=== PATIENT | female | born 1990 | race American Indian/Alaskan Native ===

== ENCOUNTER 2017-07-09 19:48 | Emergency (ER) | payer OTHER ==
[2017-07-09 20:14] VITALS: BP 120/86
--- NOTE | 2017-07-09 23:00 | XRay Report ---
FINAL REPORT PROCEDURE: XR CHEST ROUTINE 2V TECHNIQUE: PA and lateral chest radiographs were obtained. CPT 22015 HISTORY: cough COMPARISON: No prior studies are available for comparison. FINDINGS: Heart: Normal. Mediastinum/Vessels: Normal. Lungs/Pleural space: Normal. Bony thorax: No acute osseous abnormality. Other: IMPRESSION: Negative examination.
[2017-07-09] MEDS ORDERED: MOTRIN ONE (23:04)
[2017-07-09] MEDS ORDERED: TESSALON PERLES PO ONE ×2 (23:05→23:08)
[2017-07-09] MEDS ORDERED: MOTRIN PO ONE (23:07)
[2017-07-09 23:38] LABS: Basophils % (Auto) 0.7 % (0.0-1.8); Eosinophils % (Auto) 5.1 % (0.0-4.3); Hematocrit 37.4 % (30.3-42.9); Hemoglobin 12.3 gm/dl (10.1-14.3); Mean Corpuscular HGB Conc 33 % (30-34); Mean Corpuscular Hemoglobin 32 pg (28-32); Mean Corpuscular Volume 96 fl (79-97); Platelet Count 207 K/mm3 (140-440); Red Cell Distribution Width 12.8 % (13.2-15.2); White Blood Count 5.3 K/mm3 (4.5-11.0)
--- NOTE | 2017-07-09 23:44 | Emergency Department Report ---
- General Chief Complaint: Upper Respiratory Infection Stated Complaint: COUGH; CP; URI SX Time Seen by Provider: 07/09/17 23:04 Source: patient Mode of arrival: Ambulatory Limitations: No Limitations - History of Present Illness Initial Comments: This is a 27-year-old female nontoxic, well nourished in appearance, no acute signs of distress presents to the ED with c/o of nonproductive cough x1 weeks and chest pain. Patient stated she was seen last week and was diagnosed with URI and received azithromycin. Patient stated symptoms such as rhinorrhea, productive cough has subsided the patient is complaining of nonproductive cough now. SHe stated THAT this has resolved only complaint now she has is nonproductive cough and chest pain during coughing episode. The patient denies any shortness of breath, wheezing, Pain, calf tenderness, hemoptysis, fever, chills, nausea, vomiting, headache or stiff neck. Patient states she had recent travel of 6 hours on a car but stated she stopped every 2-3 hours. Patient denies travels outside of country. Patient denies any drug allergies or past medical history. Patient denies radiation of chest pain. Chest pain location is mid sternum. MD Complaint: cough -: week(s) (1) Severity: mild Severity scale (0 -10): 8 Quality: aching Consistency: constant, intermittent (chest pain during cough) Improves With: nothing Worsens With: nothing Associated Symptoms: cough. denies: fever, chills, myalgias, diaphoresis, headache, rhinorrhea, nasal congestion, sore throat, stiff neck, chest pain, shortness of breath, abdominal pain, nausea, vomiting, diarrhea, dysuria, rash, confusion, right sweats, weight loss, epistaxis, hoarseness, ear pain - Related Data Previous Rx's Medication Instructions Recorded Last Taken Type Ibuprofen [Motrin] 600 mg PO Q8H PRN #30 tablet 07/09/17 Unknown Rx predniSONE [Deltasone] 40 mg PO QDAY #5 tab 07/09/17 Unknown Rx Benzonatate [Tessalon Perle] 100 mg PO Q8H #30 capsule 07/10/17 Unknown Rx Allergies Allergy/AdvReac Type Severity Reaction Status Date / Time No Known Allergies Allergy Unverified 07/09/17 20:14 ED Review of Systems ROS: Stated complaint: COUGH; CP; URI SX Other details as noted in HPI Constitutional: denies: chills, fever Eyes: denies: eye pain, eye discharge, vision change ENT: denies: ear pain, throat pain Respiratory: cough. denies: shortness of breath, wheezing Cardiovascular: chest pain. denies: palpitations Endocrine: no symptoms reported Gastrointestinal: denies: abdominal pain, nausea, diarrhea Genitourinary: denies: urgency, dysuria, discharge Musculoskeletal: denies: back pain, joint swelling, arthralgia Skin: denies: rash, lesions Neurological: denies: headache, weakness, paresthesias Psychiatric: denies: anxiety, depression Hematological/Lymphatic: denies: easy bleeding, easy bruising ED Past Medical Hx - Social History Smoking Status: Former Smoker Substance Use Type: Alcohol - Medications Home Medications: Home Medications Medication Instructions Recorded Confirmed Last Taken Type Ibuprofen [Motrin] 600 mg PO Q8H PRN #30 tablet 07/09/17 Unknown Rx predniSONE [Deltasone] 40 mg PO QDAY #5 tab 07/09/17 Unknown Rx Benzonatate [Tessalon Perle] 100 mg PO Q8H #30 capsule 07/10/17 Unknown Rx ED Physical Exam - General Limitations: No Limitations General appearance: alert, in no apparent distress - Head Head exam: Present: atraumatic, normocephalic, normal inspection - Eye Eye exam: Present: normal appearance, PERRL, EOMI. Absent: scleral icterus, conjunctival injection, nystagmus, periorbital swelling, periorbital tenderness Pupils: Present: normal accommodation - ENT ENT exam: Present: normal exam, normal orophraynx, mucous membranes moist, TM's normal bilaterally, normal external ear exam - Neck Neck exam: Present: normal inspection, full ROM. Absent: tenderness, meningismus, lymphadenopathy, thyromegaly - Respiratory Respiratory exam: Present: normal lung sounds bilaterally, chest wall tenderness (midsternum). Absent: respiratory distress, wheezes, rales, rhonchi , stridor, accessory muscle use, decreased breath sounds, prolonged expiratory - Cardiovascular Cardiovascular Exam: Present: regular rate, normal rhythm, normal heart sounds. Absent: bradycardia, tachycardia, irregular rhythm, systolic murmur, diastolic murmur, rubs, gallop - GI/Abdominal GI/Abdominal exam: Present: soft, normal bowel sounds. Absent: distended, tenderness, guarding, rebound, rigid, diminished bowel sounds - Rectal Rectal exam: Present: deferred - Extremities Exam Extremities exam: Present: normal inspection, full ROM, normal capillary refill. Absent: tenderness, pedal edema, joint swelling, calf tenderness - Back Exam Back exam: Present: normal inspection, full ROM. Absent: tenderness, CVA tenderness (R), CVA tenderness (L), muscle spasm, paraspinal tenderness, vertebral tenderness, rash noted - Neurological Exam Neurological exam: Present: alert, oriented X3, CN II-XII intact, normal gait, reflexes normal - Psychiatric Psychiatric exam: Present: normal affect, normal mood - Skin Skin exam: Present: warm, dry, intact, normal color. Absent: rash ED Course Vital Signs 07/09/17 07/09/17 20:10 21:33 Temperature 99.3 F Pulse Rate 86 Respiratory 20 20 Rate Blood Pressure 120/86 O2 Sat by Pulse 99 Oximetry - Reevaluation(s) Reevaluation #1: 07/09/17 23:47 Patient is speaking in full sentences with no signs of distress noted. ED Medical Decision Making - Lab Data Result diagrams: 07/09/17 23:16 07/09/17 23:16 - EKG Data When compared to previous EKG there are: no significant change Interpretation: no acute changes, normal EKG - Radiology Data Radiology results: report reviewed interpreted by me: Radiologist Normal exam chest - Medical Decision Making This is a 27-year-old female that presents with costochondritis and bronchitis. Patient is stable and was examined by me. EKG obtained with normal sinus rhythm and no ST abnormalities. CBC, BMP, troponin obtained within normal limits. D-dimer negative. Negative test. Chest x-ray obtained and reviewed by radiologist with normal exam. Patient notified of x-ray results and laboratory findings with noted by the patient. Patient received Solu- Medrol 125 mg in the ED. Patient received Tessalon Perles and Motrin which patient stated symptoms of coughing and chest pain is improving and has subsided. She is discharged with prednisone. Patient was instructed Follow-up with a primary care doctor in 3-5 days or if symptoms worsen and continue return to emergency room as soon as possible. At time time of discharge, the patient does not seem toxic or ill in appearance. No acute signs of distress noted. Patient agrees to discharge treatment plan of care. No further questions noted by the patient. Patient showed me her zpack that she just finished. Critical care attestation.: If time is entered above; I have spent that time in minutes in the direct care of this critically ill patient, excluding procedure time. ED Disposition Clinical Impression: Bronchitis, Costochondritis Disposition: TO HOME OR SELFCARE Is pt being admited?: No Does the pt Need Aspirin: No Condition: Stable Instructions: Ibuprofen (By mouth), Prednisone (By mouth), Costochondritis (ED) , Acute Bronchitis (ED) Additional Instructions: Follow-up with a primary care doctor in 3-5 days or if symptoms worsen and continue return to emergency room as soon as possible. Prescriptions: Benzonatate [Tessalon Perle] 100 mg PO Q8H #30 capsule Ibuprofen [Motrin] 600 mg PO Q8H PRN #30 tablet PRN Reason: Pain predniSONE [Deltasone] 40 mg PO QDAY #5 tab Referrals: ACACIA DUPREE MD [Primary Care Provider] - 3-5 Days KAI GARDINER MD [Staff Physician] - 3-5 Days [facility] [Outside] - [facility] Days [facility] - [facility]-5 Days Forms: Work/School Release Form(ED)
[2017-07-09 23:55] LABS: Anion Gap 18 mmol/L; BUN/Creatinine Ratio 13; Blood Urea Nitrogen 5 mg/dL (7-17); Calcium 9.3 mg/dL (8.4-10.2); Carbon Dioxide 22 mmol/L (22-30); Chloride 102.8 mmol/L (98-107); Glucose 81 mg/dL (65-100); Sodium 139 mmol/L (137-145)
[2017-07-10 00:10] LABS: Alanine Aminotransferase 14 units/L (7-56); Albumin 4.4 g/dL (3.9-5); Albumin/Globulin Ratio 1.8 %; Alkaline Phosphatase 39 units/L (35-129); Total Protein 6.8 g/dL (6.3-8.2)
[2017-07-10 00:15] LABS: Bilirubin,Direct < 0.2 mg/dL (0-0.2); Bilirubin,Indirect 0.1 mg/dL
== END 2017-07-10 00:21 | disposition home or self-care (01) ==
LOC: ED 19:48
DX: J40 Bronchitis, not specified as acute or chronic (principal); M94.0 Chondrocostal junction syndrome [Tietze]
CPT/HCPCS: 36415; 71020; 80048; 80074; 84484; 84703; 85025; 85379; 87400; 93005; 93010; 96372; 99284; J2930

== ENCOUNTER 2018-09-18 06:45 | Emergency (ER) | payer MEDICAID, OTHER ==
[2018-09-18 06:55] VITALS: BP 117/89
[2018-09-18 07:42] LABS: HCG Qualitative,Urine Negative (Negative)
[2018-09-18 07:44] LABS: Bacteria,Urine 4+ /HPF (Negative); Bilirubin,Urine NEG (Negative); Blood,Urine MOD (Negative); Color,Urine Yellow (Yellow); Mucus,Urine FEW /HPF; Urobilinogen,Urine < 2.0 mg/dL (<2.0)
--- NOTE | 2018-09-18 08:08 | Emergency Department Report ---
ED Dysuria HPI - HPI Chief Complaint: Urogenital-Female Stated Complaint: PAINFUL URINATION Time Seen by Provider: 09/18/18 07:51 Duration: 3 Days Location of Discomfort: Suprapubic Severity: Mild Symptoms: Dysuria: Yes, Frequency: No, Flank Pain: No, Fever: No, Hematuria: No, Abdominal Pain: No, Previous UTI's: No Other History: H and is a 28-year-old -[place] female comes to the emergency room complaining of vaginal discharge. She is concerned because she just found out that way for many years just close to her is . Patient did call her [facility] and they were unable to see her. Patient does have a history of BV. Patient is having dysuria as well as the vaginal discharge. ED Review of Systems ROS: Stated complaint: PAINFUL URINATION Other details as noted in HPI Comment: All other systems reviewed and negative Constitutional: denies: chills Eyes: denies: eye pain ENT: denies: ear pain Respiratory: denies: cough Cardiovascular: denies: palpitations Endocrine: denies: flushing Gastrointestinal: denies: abdominal pain, nausea, vomiting Genitourinary: as per HPI, dysuria, discharge. denies: urgency, frequency, hematuria Musculoskeletal: denies: back pain, joint swelling, arthralgia Skin: denies: lesions, change in color Neurological: denies: weakness Psychiatric: denies: anxiety Hematological/Lymphatic: denies: easy bleeding ED Past Medical Hx - Past Medical History Previous Medical History?: No - Surgical History Past Surgical History?: Yes Additional Surgical History: x2 - Family History Family history: no significant - Social History Smoking Status: Current Every Day Smoker Substance Use Type: Alcohol - Medications Home Medications: Home Medications Medication Instructions Recorded Confirmed Last Taken Type Fluconazole [Diflucan] 150 mg PO ONCE #1 tablet 09/18/18 Unknown Rx Sulfamethoxazole/Trimethoprim 1 each PO BID #6 tablet 09/18/18 Unknown Rx [Bactrim DS TAB] metroNIDAZOLE [Flagyl] 500 mg PO Q12HR #20 tab 09/18/18 Unknown Rx Dysuria Exam - Exam General: Vital signs noted. No distress. Alert and acting appropriately. Exam: Yes Moist Mucous Membranes, No CVA Tenderness, No Abdominal Tenderness, No Rigidity or Guarding Labs: Lab Results 09/18/18 Range/Units 07:31 Urine Color Yellow (Yellow) Urine Turbidity Slightly-cloudy (Clear) Urine pH 6.0 (5.0-7.0) Ur Specific [place] 1.023 (1.003-1.030) Urine Protein 100 mg/dl (Negative) mg/dL Urine Glucose (UA) Neg (Negative) mg/dL Urine Ketones Neg (Negative) mg/dL Urine Blood Mod (Negative) Urine Nitrite Neg (Negative) Ur Reducing Substances Not Reportable Urine Bilirubin Neg (Negative) Urine Ictotest Not Reportable Urine Urobilinogen < 2.0 (<2.0) mg/dL Ur Leukocyte Esterase Sm (Negative) Urine WBC (Auto) 134.0 H (0.0-6.0) /HPF Urine RBC (Auto) 26.0 (0.0-6.0) /HPF U Epithel Cells (Auto) 1.0 (0-13.0) /HPF Urine Bacteria (Auto) 4+ (Negative) /HPF Urine Mucus Few /HPF Urine HCG, Qual Negative (Negative) ED Course Vital Signs 09/18/18 09/18/18 06:53 07:16 Temperature 98.0 F 98 F Pulse Rate 90 96 H Respiratory 18 18 Rate Blood Pressure 117/89 117/89 O2 Sat by Pulse 100 98 Oximetry ED Medical Decision Making - Medical Decision Making Labs 09/18/18 07:31 Urine Color Yellow Urine Turbidity Slightly-cloudy Urine pH 6.0 Ur Specific [place] 1.023 Urine Protein 100 mg/dl Urine Glucose (UA) Neg Urine Ketones Neg Urine Blood Mod Urine Nitrite Neg Ur Reducing Substances Not Reportable Urine Bilirubin Neg Urine Ictotest Not Reportable Urine Urobilinogen < 2.0 Ur Leukocyte Est rase Sm Urine WBC (Auto) 134.0 H Urine RBC (Auto) 26.0 U Epithel Cells (Auto) 1.0 Urine Bacteria (Auto) 4+ Urine Mucus Few Urine HCG, Qual Negative Labs 09/18/18 07:31 Urine Color Yellow Urine Turbidity Slightly-cloudy Urine pH 6.0 Ur Specific [place] 1.023 Urine Protein 100 mg/dl Urine Glucose (UA) Neg Urine Ketones Neg Urine Blood Mod Urine Nitrite Neg Ur Reducing Substances Not Reportable Urine Bilirubin Neg Urine Ictotest Not Reportable Urine Urobilinogen < 2.0 Ur Leukocyte Esterase Sm Urine WBC (Auto) 134.0 H Urine RBC (Auto) 26.0 U Epithel Cells (Auto) 1.0 Urine Bacteria (Auto) 4+ Urine Mucus Few Urine HCG, Qual Negative Discussed the urinary findings with the patient. Also wet prep was positive for clue cells. Negative trichomoniasis negative use. Patient is very concerned about STDs so she will be treated empirically. I suspected the patient in addition to the BV has a component of a urinary tract infection given her dysuria and frequency. It may be that we found the BV incidentally as we get the wet prep. Discharge on exam was not malodorous. Critical care attestation.: If time is entered above; I have spent that time in minutes in the direct care of this critically ill patient, excluding procedure time. ED Disposition Clinical Impression: Bacterial vaginosis, Vaginitis, UTI (urinary tract infection) Disposition: DC-01 TO HOME OR SELFCARE Is pt being admited?: No Does the pt Need Aspirin: No Condition: Stable Instructions: Sexually Transmitted Diseases (ED), Safe Sex (ED) Prescriptions: Fluconazole [Diflucan] 150 mg PO ONCE #1 tablet metroNIDAZOLE [Flagyl] 500 mg PO Q12HR #20 tab Sulfamethoxazole/Trimethoprim [Bactrim DS TAB] 1 each PO BID #6 tablet Referrals: ALVINA SERRATO MD [Primary Care Provider] - 3-5 Days Forms: STI Treatment and Prevention Time of Disposition: 08:23
[2018-09-18] MEDS ORDERED: XYLOCAINE 1% MPF 5 mL INFILTRATI ONE (08:35)
[2018-09-18] MEDS ORDERED: ROCEPHIN IM ONE (08:35)
[2018-09-18] MEDS ORDERED: ZITHROMAX PO ONE (08:35)
== END 2018-09-18 09:04 | disposition home or self-care (01) ==
LOC: ED 06:45
DX: N76.0 Acute vaginitis (principal); N39.0 Urinary tract infection, site not specified; B96.89 Other specified bacterial agents as the cause of diseases classified elsewhere; F17.200 Nicotine dependence, unspecified, uncomplicated
CPT/HCPCS: 81001; 81025; 87210; 87591; 96372; 99283; J0696

== ENCOUNTER 2018-11-01 12:34 | Emergency (ER) | payer MEDICAID ==
--- NOTE | 2018-11-01 12:43 | Emergency Department Report ---
Blank Doc - Documentation Documentation: This is a 28-year-old female presents with dysyrua, hematuria, and urinary ottoniel quency. This initial assessment/diagnostic orders/clinical plan/treatment(s) is/are subject to change based on patient's health status, clinical progression and re- assessment by fellow clinical providers in the ED. Further treatment and workup at subsequent clinical providers discretion. Patient/guardians urged not to elope from the ED as their condition may be serious if not clinically assessed and managed. Initial orders include: 1- Patient sent to [facility] for further evaluation and treatment 2- UA
[2018-11-01 12:48] VITALS: BP 109/64
[2018-11-01 13:26] LABS: Bacteria,Urine 1+ /HPF (Negative); Bilirubin,Urine NEG (Negative); Blood,Urine LG (Negative); Color,Urine Yellow (Yellow); Mucus,Urine 2+ /HPF
[2018-11-01 13:28] LABS: HCG Qualitative,Urine Negative (Negative); RBC,Urine > 182.0 /HPF (0.0-6.0); WBC,Urine > 182.0 /HPF (0.0-6.0)
[2018-11-01] MEDS ORDERED: ROCEPHIN IM ONE (17:36)
[2018-11-01] MEDS ORDERED: XYLOCAINE 1% MPF 5 mL INFILTRATI ONE (17:36)
--- NOTE | 2018-11-01 17:42 | Emergency Department Report ---
<OLGA RAMOS - Last Filed: 11/01/18 17:37> ED Female HPI - General Chief complaint: Urogenital-Female Stated complaint: UTI Time Seen by Provider: 11/01/18 12:42 Source: patient Mode of arrival: Ambulatory Limitations: No Limitations - History of Present Illness Initial comments: Pt presents to the ED with c/o dysuria that began today. She has associated pelvic pressure and urinary frequency. She denies any vaginal discharge, itching, burning, or lesions. She states she is not sexually active and has not been in 5 months. The patient states she is not concerned for STDs. She denies any N/V or fever. She denies any PMHx and does not have any allergies. - Related Data Previous Rx's Medication Instructions Recorded Last Taken Type Fluconazole [Diflucan] 150 mg PO ONCE #1 tablet 09/18/18 Unknown Rx Sulfamethoxazole/Trimethoprim 1 each PO BID #6 tablet 09/18/18 Unknown Rx [Bactrim DS TAB] metroNIDAZOLE [Flagyl] 500 mg PO Q12HR #20 tab 09/18/18 Unknown Rx Allergies Allergy/AdvReac Type Severity Reaction Status Date / Time No Known Allergies Allergy Unverified 07/09/17 20:14 ED Review of Systems Comment: All other systems reviewed and negative ED Past Medical Hx - Past Medical History Previous Medical History?: No - Surgical History Past Surgical History?: Yes Additional Surgical History: x2 - Social History Smoking Status: Never Smoker Substance Use Type: None - Medications Home Medications: Home Medications Medication Instructions Recorded Confirmed Last Taken Type Fluconazole [Diflucan] 150 mg PO ONCE #1 tablet 09/18/18 Unknown Rx Sulfamethoxazole/Trimethoprim 1 each PO BID #6 tablet 09/18/18 Unknown Rx [Bactrim DS TAB] metroNIDAZOLE [Flagyl] 500 mg PO Q12HR #20 tab 09/18/18 Unknown Rx ED Physical Exam - General Limitations: No Limitations General appearance: alert, in no apparent distress - Head Head exam: Present: atraumatic, normocephalic - Eye Eye exam: Present: normal appearance - ENT ENT exam: Present: mucous membranes moist - Respiratory Respiratory exam: Absent: respiratory distress - Cardiovascular Cardiovascular Exam: Present: regular rate - GI/Abdominal GI/Abdominal exam: Present: soft. Absent: distended, tenderness, guarding, rebound, rigid - Back Exam Back exam: Absent: CVA tenderness (R), CVA tenderness (L) - Neurological Exam Neurological exam: Present: alert, oriented X3 - Psychiatric Psychiatric exam: Present: normal affect, normal mood - Skin Skin exam: Present: warm, dry, intact ED Medical Decision Making - Medical Decision Making Pt presents to the ED with c/o dysuria that began today. She has associated pelvic pressure and urinary frequency. She denies any vaginal discharge, itching, burning, or lesions. She states she is not sexually active and has not been in 5 months. The patient states she is not concerned for STDs. She denies any N/V or fever. She denies any PMHx and does not have any allergies. UA shows >182 WBCs will give pt ceftriaxone injection while in the ED. No abd tenderness, no CVAT. VSS. WIll have pt follow up with her PCP in the next 2-3 days. Return to the ED for any new or worsening symptoms. ED Disposition Clinical Impression: UTI (urinary tract infection) Disposition: TO HOME OR SELFCARE Is pt being admited?: No Does the pt Need Aspirin: No Condition: Stable Instructions: Urinary Tract Infection in Women (ED) Additional Instructions: Please follow up with a primary care doctor in the next 2-3 days. Return to the emergency room for any new or worsening symptoms. Referrals: JOSEFINA VOSS MD [Primary Care Provider] - 2-3 Days Time of Disposition: 17:43 Print Language: GERMAN <ACACIA HEBERT - Last Filed: 11/02/18 01:52> ED Review of Systems ROS: Stated complaint: UTI Other details as noted in HPI ED Course Vital Signs 11/01/18 12:43 Temperature 98 F Pulse Rate 69 Respiratory 16 Rate Blood Pressure 109/64 O2 Sat by Pulse 98 Oximetry Critical care attestation.: If time is entered above; I have spent that time in minutes in the direct care of this critically ill patient, excluding procedure time.
== END 2018-11-01 18:30 | disposition home or self-care (01) ==
LOC: ED 12:34
DX: N39.0 Urinary tract infection, site not specified (principal)
CPT/HCPCS: 81001; 81025; 96372; 99283; J0696

== ENCOUNTER 2019-07-19 01:51 | Emergency (ER) | payer MEDICAID | END 2019-07-19 02:18 | disposition left against medical advice (07) | LOC: ED 01:51 ==